=== PATIENT | female | born 1985 | race American Indian/Alaskan Native ===

== ENCOUNTER 2017-02-02 01:31 | Emergency (ER) | payer OTHER ==
[2017-02-02] MEDS ORDERED: guaiFENesin/D-METHORPHAN HB 10 ML UNIT-DOSE CUPS PO ONE (03:08)
--- NOTE | 2017-02-02 03:12 | PDOC ---
History of Present Illness - General History Source: Patient Exam Limitations: No Limitations - History of Present Illness Initial Comments: 02/02/17 03:12 The patient is a 31 year old female with no pertinent past medical history who presents to the ED with 3 weeks of persistent cough. She qualifies the cough as productive and denies any presence of blood. She also reports mild shortness of breath. The patient denies any fever, chills, nausea, vomiting, diarrhea, or chest pain. She denies any recent illness or sick contacts. PCP: Kary Wang <Elisabeth Andrews - Last Filed: 02/02/17 03:12> <Jordon Syed - Last Filed: 02/02/17 04:25> - General Chief Complaint: Respiratory Stated Complaint: COUGH Past History <Elisabeth Andrews - Last Filed: 02/02/17 03:12> - Past Medical History Asthma: No Cancer: No Cardiac Disorders: No Diabetes: No HTN: No Seizures: No Thyroid Disease: No - Immunization History Immunization Up to Date: Yes - Psycho/Social/Smoking Cessation Hx Anxiety: No Suicidal Ideation: No Smoking Status: No Smoking History: Never smoked Number of Cigarettes Smoked Daily: 0 Hx Alcohol Use: No Drug/Substance Use Hx: No Hx Substance Use Treatment: No <Jordon Syed - Last Filed: 02/02/17 04:25> - Past Medical History Allergies/Adverse Reactions: Allergies Allergy/AdvReac Type Severity Reaction Status Date / Time No Known Allergies Allergy Verified 02/02/17 01:46 Home Medications: Ambulatory Orders NK [No Known Home Medication] 02/02/17 Review of Systems - Review of Systems Able to Perform ROS?: Yes Comments:: 02/02/17 03:13 GENERAL/CONSTITUTIONAL: No fever or chills. No weakness. HEAD, EYES, EARS, NOSE AND THROAT: No change in vision. No ear pain or discharge. No sore throat. CARDIOVASCULAR: No chest pain. RESPIRATORY: Present: productive cough, SOB No wheezing, or hemoptysis. GASTROINTESTINAL: No nausea, vomiting, diarrhea or constipation. GENITOURINARY: No dysuria, frequency, or change in urination. MUSCULOSKELETAL: No joint or muscle swelling or pain. No neck or back pain. SKIN: No rash NEUROLOGIC: No headache, vertigo, loss of consciousness, or change in strength/ sensation. ENDOCRINE: No increased thirst. No abnormal weight change. HEMATOLOGIC/LYMPHATIC: No anemia, easy bleeding, or history of blood clots. ALLERGIC/IMMUNOLOGIC: No hives or skin allergy. All Other Systems: Reviewed and Negative <Elisabeth Andrews - Last Filed: 02/02/17 03:12> *Physical Exam - Vital Signs Last Vital Signs Temp Pulse Resp BP Pulse Ox 98.1 F 81 18 123/83 99 02/02/17 01:41 02/02/17 01:41 02/02/17 01:41 02/02/17 01:41 02/02/17 01:41 - Physical Exam Comments: 02/02/17 03:14 GENERAL: Awake, alert, and fully oriented, in no acute distress HEAD: No signs of trauma EYES: PERRLA, EOMI, sclera anicteric, conjunctiva clear ENT: Left palatine tonsilith. Auricles normal inspection, hearing grossly normal , nares patent, Moist mucosa NECK: Normal ROM, supple, no lymphadenopathy, JVD, or masses LUNGS: Expiratory wheeze. Breath sounds equal, clear to auscultation bilaterally. No wheezes, and no crackles HEART: Regular rate and rhythm, normal S1 and S2, no murmurs, rubs or gallops ABDOMEN: Soft, nontender, normoactive bowel sounds. No guarding, no rebound. No masses EXTREMITIES: Normal range of motion, no edema. No clubbing or cyanosis. No cords , erythema, or tenderness NEUROLOGICAL: Cranial nerves II through XII grossly intact. Normal speech, normal gait SKIN: Warm, Dry, normal turgor, no rashes or lesions noted. <Elisabeth Andrews - Last Filed: 02/02/17 03:12> - Vital Signs Last Vital Signs Temp Pulse Resp BP Pulse Ox 98.1 F 81 18 123/83 99 02/02/17 01:41 02/02/17 01:41 02/02/17 01:41 02/02/17 01:41 02/02/17 01:41 <Jordon Syed - Last Filed: 02/02/17 04:25> Medical Decision Making - Medical Decision Making 02/02/17 04:21 This is a 31yo f with ongoing dry cough and no other symptoms; she has no known sick contacts and reports not smoking routinely; she has a normal PE and and CXR shows scarring and chronic changes however, she reports no h/o any occupational or home exposure; [place] She is given antitussives and encouraged to follow up with the PMD within the next 48 hours. <Jordon Syed - Last Filed: 02/02/17 04:25> *DC/Admit/Observation/Transfer - Attestations Scribe Attestion: 02/02/17 03:15 Documentation prepared by Elisabeth Andrews, acting as medical coding specialist for Jordon Syed MD. <Elisabeth Andrews - Last Filed: 02/02/17 03:12> - Discharge Dispostion Admit: No Decision to Admit order Date/Time: 02/02/17 03:08 - Attestations Physician Attestion: 02/02/17 04:18 <Jordon Syed - Last Filed: 02/02/17 04:25> Diagnosis at time of Disposition: Acute bronchitis Qualifiers: Bronchitis organism: other organism Qualified Code(s): J20.8 - Acute bronchitis due to other specified organisms - Discharge Dispostion Disposition: HOME Condition at time of disposition: Guarded - Referrals Referrals: Kary Wang MD [Primary Care Provider] - - Patient Instructions Additional Instructions: At this time, your symptoms are likely related to a viral bronchitis and this can be persistent for up to a few weeks in fact. Please use the medications prescribed and if there is any change otherwise in your symptoms, please return immediately to the ED.
[2017-02-02] MEDS ORDERED: guaiFENesin/D-METHORPHAN HB 10 ML UNIT-DOSE CUPS ONE (03:19)
[2017-02-02 03:35] VITALS: PULSE 80; TEMP 97.5
[2017-02-02] MEDS ORDERED: LIDOCAINE HCL 2% (50ML VIAL) PNB ONE (04:19)
[2017-02-02] MEDS ORDERED: ALBUTEROL SO4 2.5/IPRATROPIUM 0.5 INH SOL 3 ML VIAL.NEB. NEB ONE ×2 (04:19→04:27)
[2017-02-02] MEDS ORDERED: LIDOCAINE HCL 2% (20ML MULTI-DOSE VIAL) NR ONE (04:27)
[2017-02-02 04:45] VITALS: BP 125/88
== END 2017-02-02 04:46 | disposition home or self-care (01) ==
LOC: JER 01:31
PROC: 3E0F7GC Introduction of Other Therapeutic Substance into Respiratory Tract, Via Natural or Artificial Opening (ICD-10-PCS; principal; 2017-02-02)
DX: J20.8 Acute bronchitis due to other specified organisms (principal)
CPT/HCPCS: 71020-TC; 84703; 94640; 99284-25

== ENCOUNTER 2017-03-29 22:48 | Emergency (ER) | payer OTHER ==
[2017-03-29 22:57] VITALS: BP 115/79; PULSE 74; TEMP 97.8; BMI 26.4
[2017-03-30 00:11] LABS: BASOPHIL 0.6 % (0-2.0); EOSINOPHIL 7.3 % (0-4.5); MCH 28.8 pg (25.7-33.7); MCHC 32.7 g/dl (32.0-36.0); MEAN CELL VOLUME 87.9 fl (80-96); MEAN PLT VOLUME 8.7 fl (7.5-11.1); NEUTROPHILS 45.1 % (42.8-82.8); PLATELET COUNT 206 K/MM3 (134-434); RDW 12.8 % (11.6-15.6); WHITE BLOOD COUNT 5.8 K/mm3 (4.0-10.0)
[2017-03-30 00:22] LABS: INR 0.98 (0.82-1.09); PROTHROMBIN TIME (PATIENT) 10.8 SEC (9.98-11.88)
--- NOTE | 2017-03-30 00:30 | PDOC ---
History of Present Illness - General History Source: Patient Exam Limitations: No Limitations - History of Present Illness Initial Comments: 03/30/17 01:03 The patient is a 32-year-old female with no significant past medical history, and presents to the emergency department with left breast tenderness, redness, and pain that started 3 days ago. She reports that she is experiencing heaviness in the left breast along with green and red discharge upon squeezing. She reports a subjective fever, one episode of vomiting, and mild bilateral flank pain 2 days ago. She denies any fever upon interview. She took Advil with no significant relief of pain. She reports she has not breastfed in 5 years. She states she had a yeast infection recently. The patient denies chest pain, shortness of breath, headache and dizziness. The patient denies chills, nausea, vomit, diarrhea and constipation. The patient denies dysuria, frequency, urgency and hematuria. LMP: 2 weeks ago Allergies: NKDA Past Surgical History: None reported Social History: No toxic habits reported PCP: Dr. Carmen Marin <Marilyn Simpson - Last Filed: 03/30/17 01:03> <Marbella Arndt - Last Filed: 03/30/17 02:39> - General Chief Complaint: Pain, Acute Stated Complaint: SALINAS IN BREAST Time Seen by Provider: 03/29/17 23:06 Past History <Marilyn Simpson - Last Filed: 03/30/17 01:03> - Past Medical History Asthma: No Cancer: No Cardiac Disorders: No Diabetes: No HTN: No Seizures: No Thyroid Disease: No - Immunization History Immunization Up to Date: Yes - Psycho/Social/Smoking Cessation Hx Anxiety: No Suicidal Ideation: No Smoking Status: No Smoking History: Never smoked Have you smoked in the past 12 months: No Number of Cigarettes Smoked Daily: 0 Information on smoking cessation initiated: No Hx Alcohol Use: No Drug/Substance Use Hx: No Substance Use Type: None Hx Substance Use Treatment: No <Marbella Arndt - Last Filed: 03/30/17 02:39> - Past Medical History Allergies/Adverse Reactions: Allergies Allergy/AdvReac Type Severity Reaction Status Date / Time No Known Allergies Allergy Verified 03/29/17 22:53 Home Medications: Ambulatory Orders Clindamycin [Cleocin -] 300 mg PO Q6HPO #28 capsule 03/30/17 Fluconazole 150 mg PO ONCE #1 tablet 03/30/17 Review of Systems - Review of Systems Able to Perform ROS?: Yes Comments:: 03/30/17 01:03 CONSTITUTIONAL: Present: (+) fever Absent: chills, diaphoresis, generalized weakness, malaise, loss of appetite HEENT: Absent: rhinorrhea, nasal congestion, throat pain, throat swelling, difficulty swallowing, mouth swelling, ear pain, eye pain, visual changes CARDIOVASCULAR: Absent: chest pain, syncope, palpitations, irregular heart rate, lightheadedness , peripheral edema RESPIRATORY: Absent: cough, shortness of breath, dyspnea with exertion, orthopnea, wheezing, stridor, hemoptysis GASTROINTESTINAL: Present: (+) vomiting Absent: abdominal pain, abdominal distension, nausea, diarrhea, constipation, melena, hematochezia THORACIC: Present: (+) Left breast pain, hardness, redness, and discharge GENITOURINARY: Absent: dysuria, frequency, urgency, hesitancy, hematuria, genital pain MUSCULOSKELETAL: Absent: myalgia, arthralgia, joint swelling SKIN: Absent: rash, itching, pallor HEMATOLOGIC/IMMUNOLOGIC: Absent: easy bleeding, easy bruising, lymphadenopathy, frequent infections ENDOCRINE: Absent: unexplained weight gain, unexplained weight loss, heat intolerance, cold intolerance NEUROLOGIC: Absent: headache, focal weakness or paresthesias, dizziness, unsteady gait, seizure, mental status changes, bladder or bowel incontinence PSYCHIATRIC: Absent: anxiety, depression, suicidal or homicidal ideation, hallucinations. <Marilyn Simpson - Last Filed: 03/30/17 01:03> *Physical Exam - Vital Signs Last Vital Signs Temp Pulse Resp BP Pulse Ox 97.8 F 74 18 115/79 99 03/29/17 22:50 03/29/17 22:50 03/29/17 22:50 03/29/17 22:50 03/29/17 22:50 - Physical Exam Comments: 03/30/17 01:04 GENERAL: Well developed, well nourished. Awake and alert. No acute distress. HEENT: Normocephalic, atraumatic. PERRLA, EOMI. No conjunctival pallor. Sclera are non- icteric. Moist mucous membranes. Oropharynx is clear. NECK: Supple. Full ROM. No JVD. Carotid pulses 2+ and symmetric, without bruits. No thyromegaly. No lymphadenopathy. CARDIOVASCULAR: Regular rate and rhythm. No murmurs, rubs, or gallops. Distal pulses are 2+ and symmetric. PULMONARY: No evidence of respiratory distress. Lungs clear to auscultation bilaterally. No wheezing, rales or rhonchi. THORACIC: (+) Left breast 3 oclock to 6 oclock presents with redness and hard mass. (+) With pressure of nipple she can express slight yellow pus and clear fluid. ABDOMINAL: Soft. Non-tender. Non-distended. No rebound or guarding. No organomegaly. Normoactive bowel sounds. MUSCULOSKELETAL Normal range of motion at all joints. No bony deformities or tenderness. No CVA tenderness. EXTREMITIES: No cyanosis. No clubbing. No edema. No calf tenderness. SKIN: Warm and dry. Normal capillary refill. No rashes. No jaundice. NEUROLOGICAL: Alert, awake, appropriate. Cranial nerves 2-12 intact. No deficits to light touch and temperature in face, upper extremities and lower extremities. No motor deficits in the in face, upper extremities and lower extremities. Normoreflexic in the upper and lower extremities. Normal speech. Toes are down- going bilaterally. Gait is normal without ataxia. PSYCHIATRIC: Cooperative. Good eye contact. Appropriate mood and affect. <Marilyn Simpson - Last Filed: 03/30/17 01:03> - Vital Signs Last Vital Signs Temp Pulse Resp BP Pulse Ox 97.8 F 74 18 115/79 99 03/29/17 22:50 03/29/17 22:50 03/29/17 22:50 03/29/17 22:50 03/29/17 22:50 <Marbella Arndt - Last Filed: 03/30/17 02:39> ED Treatment Course - LABORATORY CBC & Chemistry Diagram: 03/30/17 00:02 03/30/17 00:02 - ADDITIONAL ORDERS Additional order review: Laboratory Results 03/30/17 03/30/17 03/30/17 00:02 00:02 00:02 INR 0.98 Sodium 144 Potassium 3.7 Chloride 106 Carbon Dioxide 28 Anion Gap 10 BUN 12 D Creatinine 0.6 D Creat Clearance w eGFR > 60 Random Glucose 90 D Calcium 8.7 Total Bilirubin 0.3 AST 38 H ALT 57 Alkaline Phosphatase 74 Total Protein 6.9 Albumin 3.3 L Serum , Qual Negative 03/30/17 00:02 RBC 3.79 MCV 87.9 MCHC 32.7 RDW 12.8 D MPV 8.7 Neutrophils % 45.1 D Lymphocytes % 36.2 D Monocytes % 10.8 H Eosinophils % 7.3 H D Basophils % 0.6 <Marilyn Simpson - Last Filed: 03/30/17 01:03> - LABORATORY CBC & Chemistry Diagram: 03/30/17 00:02 03/30/17 00:02 - ADDITIONAL ORDERS Additional order review: Laboratory Results 03/30/17 00:02 Serum , Qual Negative 03/30/17 00:02 RBC 3.79 MCV 87.9 MCHC 32.7 RDW 12.8 D MPV 8.7 Neutrophils % 45.1 D Lymphocytes % 36.2 D Monocytes % 10.8 H Eosinophils % 7.3 H D Basophils % 0.6 <Marbella Arndt - Last Filed: 03/30/17 02:39> Medical Decision Making - Medical Decision Making 03/30/17 01:06 Labs are normal. Pt's breast sono is pending. Pt had a body fluid cuture sent. 03/30/17 02:06 Patient Name: Lilli García THIS IS A PRELIMINARYREPORT FROM IMAGING MAMMOGRAPHY TECH EXAM: Ultrasound left breast IMAGES: 27 INDICATION: Rule out abscess DATE OF SERVICE: 2017-03-30 00:54:20.0 COMPARISON: none FINDINGS: Dilated and thick walled ducts are noted between the 3:00 and 6:00 position. No discrete fluid collection is noted to suggest abscess. IMPRESSION: Dilated and thickwalled ducts may be secondary to infection but there is no abscess. THIS DOCUMENT HAS BEEN ELECTRONICALLY SIGNED Pt will be treated with clindamycin 600mg IV 03/30/17 02:39 Ptunderstands that this may be a cancer. She will require mammography once her abx course is complete. 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 <Marbella Arndt - Last Filed: 03/30/17 02:39> *DC/Admit/Observation/Transfer - Attestations Scribe Attestion: 03/30/17 01:04 Documentation prepared by Marilyn Simpson, acting as medical doctor md/medical director for Marbella Arndt MD. <Marilyn Simpson - Last Filed: 03/30/17 01:03> - Discharge Dispostion Admit: No <Marbella Arndt - Last Filed: 03/30/17 02:39> Diagnosis at time of Disposition: Cellulitis of breast - Discharge Dispostion Disposition: HOME Condition at time of disposition: Improved - Prescriptions Prescriptions: Clindamycin [Cleocin -] 300 mg PO Q6HPO #28 capsule Fluconazole 150 mg PO ONCE #1 tablet - Referrals Referrals: Carmen Grubbs MD [Primary Care Provider] - Latanya Crain MD [Staff Physician] - - Patient Instructions Printed Discharge Instructions: DI for Mastitis, Mammography
[2017-03-30 00:32] LABS: ALBUMIN 3.3 g/dl (3.4-5.0); ALK PHOS 74 U/L (45-117); ANION GAP 10 (8-16); BILIRUBIN,TOTAL 0.3 mg/dL (0.2-1.0); CALCIUM 8.7 mg/dL (8.5-10.1); CO2 28 mmol/L (21-32); COCKROFT - GAULT 148.4355; CREATININE 0.6 mg/dL (0.55-1.02); GLUCOSE,RANDOM 90 mg/dL (74-106); SGOT/AST 38 U/L (15-37); SGPT/ALT 57 U/L (12-78); TOT PROT 6.9 g/dl (6.4-8.2)
[2017-03-30] MEDS ORDERED: CLINDAMYCIN 600MG PREMIX IVPB 50 ML IVPB ONE ×2 (02:07→02:13)
[2017-03-30] MEDS ORDERED: FLUCONAZOLE 50 MG TABLET PO ONE (02:08)
== END 2017-03-30 02:58 | disposition home or self-care (01) ==
LOC: JER 22:48
DX: N61.0 Mastitis without abscess (principal)
CPT/HCPCS: 36415; 76641-TC-LT; 80053; 84703; 85025; 85610; 87070; 87075; 87205; 99282-25

== ENCOUNTER → 2017-11-05 | Day surgery (SDC) | payer OTHER ==
--- NOTE | 2017-11-06 15:58 | PATH ---
Cytology Non-Gynecological Report Patient Name: NANCY CARTER [facility]. Rec. #: [id number] /Age/Gender: 1985 (Age: 32) / F Account: [id number] Location: RADIOLOGY Taken: 11/05/2017 Received: 11/05/2017 Reported: 11/06/2017 Physicians: Jessica Barrow Specimen(s) Received THYROID FNA LEFT LOBE NODULE Clinical History Left thyroid nodule, 2.05 x 2.05 x1.11 cm Final Diagnosis THYROID, LEFT, FINE NEEDLE ASPIRATION: SATISFACTORY FOR EVALUATION. BETHESDA III: ATYPIA OF UNDETERMINED SIGNIFICANCE. ATYPICAL FOLLICULAR CELLS WITH MILD NUCLEAR ENLARGEMENT, FOCAL CLEARING, SUBTLE NUCLEAR GROOVES, CROWDING AND OVERLAP IN A BACKGROUND OF SCANT COLLOID, FEW LYMPHOCYTES, RARE LYMPHOHISTIOCYTIC AGGREGATES, AND RARE MULTINUCLEATED GIANT CELLS. Comment: Presence of lymphocytes raise the possibility of Chronic lymphocytic thyroiditis. Suggest clinical/radiologic and serologic correlation. Electronically Signed Yuliya Slater M.D. Gross Description Received are eight direct smears, four of which are air-dried and Diff-Quik stained, and four of which are alcohol fixed and Pap stained. Also received is 20 ml of bloody formalin from which one cellblock is prepared.
== END | disposition home or self-care (01) ==
LOC: JRADIR 08:56
PROVIDERS: ATTEND Family Medicine
PROC: 0G9G3ZX Drainage of Left Thyroid Gland Lobe, Percutaneous Approach, Diagnostic (ICD-10-PCS; principal; 2017-11-05)
DX: E04.1 Nontoxic single thyroid nodule (principal)
CPT/HCPCS: 76942; 88173; 88305-TC

== ENCOUNTER → 2017-11-17 | Day surgery (SDC) | payer OTHER ==
--- NOTE | 2017-11-19 16:44 | PATH ---
Cytology Non-Gynecological Report Patient Name: NANCY CARTER [facility]. Rec. #: [id number] /Age/Gender: 1985 (Age: 32) / F Account: [id number] Location: RADIOLOGY [facility] Taken: 11/17/2017 Received: 11/17/2017 Reported: 11/19/2017 Physicians: Jessica Montiel Specimen(s) Received LEFT BREAST ASP Clinical History Left breast abscess. History of antibiotic treatment. Final Diagnosis BREAST, LEFT, 3-5:00, FINE NEEDLE ASPIRATION: SATISFACTORY FOR EVALUATION. NEGATIVE FOR MALIGNANT CELLS. ACUTELY INFLAMED CYSTIC BREAST LESION. INFLAMMATORY INFILTRATE COMPRISED OF MACROPHAGES, MANY NEUTROPHILS AND FEW LYMPHOCYTES IN A HEMORRHAGIC BACKGROUND. Electronically Signed Yuliya Slater M.D. Gross Description Approximately 50 cc of clear yellow fluid received fixed in 50% alcohol. Two cytofunnels and one cellblock prepared.
== END | disposition home or self-care (01) ==
LOC: JRADUS-SUR 09:35
PROVIDERS: ATTEND Family Medicine
PROC: 0H9U3ZX Drainage of Left Breast, Percutaneous Approach, Diagnostic (ICD-10-PCS; principal; 2017-11-17)
DX: N60.02 Solitary cyst of left breast (principal)
CPT/HCPCS: 76942-TC; 87070; 87075; 87205; 87899; 88173; 88305-TC

== ENCOUNTER 2018-03-12 00:18 | Emergency (ER) | payer OTHER ==
[2018-03-12 00:33] VITALS: BP 129/71; PULSE 88; TEMP 98.2; BMI 27.1
[2018-03-12] MEDS ORDERED: predniSONE 10 MG TABLET (UD) ONE (00:39)
[2018-03-12] MEDS ORDERED: predniSONE 20 MG TABLET (UD) ONE (00:39)
--- NOTE | 2018-03-12 01:27 | PDOC ---
*Physical Exam - Vital Signs Last Vital Signs Temp Pulse Resp BP Pulse Ox 98.2 F 88 18 129/71 100 03/12/18 00:26 03/12/18 00:26 03/12/18 00:26 03/12/18 00:26 03/12/18 00:26 - Physical Exam Comments: 03/12/18 01:27 The patient was examined by [HANNAH Shirley] under my direct supervision. I personally evaluated the patient. I concur with the above findings and the plan of care. *DC/Admit/Observation/Transfer Diagnosis at time of Disposition: Pain of right breast, Painful lumpy right breast - Discharge Dispostion Disposition: HOME Condition at time of disposition: Stable - Referrals Referrals: Thom Stroud MD [Staff Physician] - Call tomorrow Miguel Angel Stroud [Staff Physician] - Call tomorrow Kary Wang MD [Primary Care Provider] - - Patient Instructions Printed Discharge Instructions: Mastalgia: Benign Breast Pain Additional Instructions: apply ice/ warm compress to the breast take ibuprofen 400 mg every 6 hours as needed follow up with your doctor as soon as possible. - Post Discharge Activity Forms/Work/School Notes: Back to Work
[2018-03-12] MEDS ORDERED: IBUPROFEN 600 MG TABLET (FP) PO ONE ×2 (01:44→02:07)
--- NOTE | 2018-03-12 01:45 | PDOC ---
History of Present Illness - General Chief Complaint: Pain, Acute Stated Complaint: PAIN Time Seen by Provider: 03/12/18 01:24 History Source: Patient - History of Present Illness Initial Comments: 03/12/18 01:44 32 year old female with right breast pain at the nipple level and pain mobile nodule x3 days. denies fever/ chills, no erythema or lymphadenopathy. history of left breast abscess. Past History - Past Medical History Allergies/Adverse Reactions: Allergies Allergy/AdvReac Type Severity Reaction Status Date / Time No Known Allergies Allergy Verified 03/12/18 02:15 Home Medications: Ambulatory Orders NK [No Known Home Medication] 03/12/18 Asthma: No Cancer: No Cardiac Disorders: No Diabetes: No HTN: No Seizures: No Thyroid Disease: No - Immunization History Immunization Up to Date: Yes - Suicide/Smoking/Psychosocial Hx Smoking Status: No Smoking History: Never smoked Have you smoked in the past 12 months: No Number of Cigarettes Smoked Daily: 0 Information on smoking cessation initiated: No Hx Alcohol Use: No Drug/Substance Use Hx: No Substance Use Type: None Hx Substance Use Treatment: No *Physical Exam - Vital Signs Last Vital Signs Temp Pulse Resp BP Pulse Ox 98.2 F 88 18 129/71 100 03/12/18 00:26 03/12/18 00:26 03/12/18 00:26 03/12/18 00:26 03/12/18 00:26 - Physical Exam General Appearance: Yes: Appropriately Dressed Neck: negative: Lymphadenopathy (R), Lymphadenopathy (L) Respiratory/Chest: positive: Other (right breast mobile nodule at nipple level 7 O' clock position. no surroung erythema,edema, tenderness, nipple dimpling notes) Medical Decision Making - Medical Decision Making breast nodule P: patient referred to breast surgery. no cellulitis/ abscess *DC/Admit/Observation/Transfer Diagnosis at time of Disposition: Pain of right breast, Painful lumpy right breast - Discharge Dispostion Disposition: HOME Condition at time of disposition: Stable - Referrals Referrals: Kary Wang MD [Primary Care Provider] - Thom Stroud MD [Staff Physician] - Call tomorrow Miguel Angel Stroud [Staff Physician] - Call tomorrow - Patient Instructions Printed Discharge Instructions: Mastalgia: Benign Breast Pain Additional Instructions: apply ice/ warm compress to the breast take ibuprofen 400 mg every 6 hours as needed follow up with your doctor as soon as possible. - Post Discharge Activity Forms/Work/School Notes: Back to Work
== END 2018-03-12 02:27 | disposition home or self-care (01) ==
LOC: JER 00:18
DX: N64.4 Mastodynia (principal)
CPT/HCPCS: 99282-25

== ENCOUNTER 2018-12-26 02:51 | Emergency (ER) | payer OTHER ==
[2018-12-26 03:35] VITALS: BP 114/76; PULSE 78; TEMP 98.2; BMI 30.2
[2018-12-26] MEDS ORDERED: IBUPROFEN 400 MG TABLET (FP) PO ONE ×2 (04:14→04:25)
[2018-12-26] MEDS ORDERED: ACETAMINOPHEN 500 MG TABLET (FP) PO ONE (04:14)
--- NOTE | 2018-12-26 04:15 | PDOC ---
Attending Attestation - Resident Resident Name: Casper Edge - ED Attending Attestation I have performed the following: I have examined & evaluated the patient, The case was reviewed & discussed with the resident, I agree w/resident's findings & plan - HPI HPI: 12/26/18 23:23 Pt comes with sore throat and she is worried that she has strep throat. - Physicial Exam PE: 12/26/18 23:23 Agree with resident exam - Medical Decision Making 12/26/18 23:24 Pt has a negative strep throat and she will be sent home with dx of viral pharyngitis.
[2018-12-26] MEDS ORDERED: ACETAMINOPHEN 325 MG TABLET (FP) ONE (04:25)
--- NOTE | 2018-12-26 04:29 | PDOC ---
History of Present Illness - General Chief Complaint: Sore Throat Stated Complaint: SORE THROAT Time Seen by Provider: 12/26/18 03:49 History Source: Patient Exam Limitations: No Limitations - History of Present Illness Initial Comments: 12/26/18 04:24 Patient is a 33F with history of thyroid cancer (s/p nodule removal x2, currently being evaluated for third) here today complaining of a sore throat that started one week ago. Patient states that this started with cough, fevers, and chills. She has been getting better for the past few days, with no fever for two days, but is coming into the ED because she cannot speak properly. Able to tolerate PO normally. No drooling. No shortness of breath. No chest pain. Past History - Past Medical History Allergies/Adverse Reactions: Allergies Allergy/AdvReac Type Severity Reaction Status Date / Time No Known Allergies Allergy Verified 12/26/18 03:34 Home Medications: Ambulatory Orders NK [No Known Home Medication] 03/12/18 Asthma: No Cancer: No Cardiac Disorders: No COPD: No Diabetes: No HTN: No Seizures: No Thyroid Disease: No - Immunization History Immunization Up to Date: Yes - Suicide/Smoking/Psychosocial Hx Smoking Status: No Smoking History: Never smoked Have you smoked in the past 12 months: No Number of Cigarettes Smoked Daily: 0 Information on smoking cessation initiated: No Hx Alcohol Use: No Drug/Substance Use Hx: No Substance Use Type: None Hx Substance Use Treatment: No Review of Systems - Review of Systems Comments:: 12/26/18 05:10 GENERAL/CONSTITUTIONAL: No fever or chills. No weakness. HEAD, EYES, EARS, NOSE AND THROAT: No change in vision. No sore throat. CARDIOVASCULAR: No chest pain or shortness of breath RESPIRATORY: +cough, no wheezing, or hemoptysis. GASTROINTESTINAL: No nausea, vomiting, diarrhea or constipation. GENITOURINARY: No dysuria, frequency, or change in urination. MUSCULOSKELETAL: No joint or muscle swelling or pain. No neck or back pain. SKIN: No rash NEUROLOGIC: No headache, vertigo, loss of consciousness, or change in strength/ sensation. ENDOCRINE: No increased thirst. No abnormal weight change HEMATOLOGIC/LYMPHATIC: No anemia, easy bleeding, or history of blood clots. ALLERGIC/IMMUNOLOGIC: No hives or skin allergy. *Physical Exam - Vital Signs Last Vital Signs Temp Pulse Resp BP Pulse Ox 98.2 F 78 20 114/76 100 12/26/18 03:34 12/26/18 03:34 12/26/18 03:34 12/26/18 03:34 12/26/18 03:34 - Physical Exam Comments: 12/26/18 05:11 GENERAL: Awake, alert, and fully oriented, in no acute distress HEAD: No signs of trauma, normocephalic, atraumatic EYES: PERRLA, EOMI, sclera anicteric, conjunctiva clear ENT: Auricles normal inspection, hearing grossly normal, nares patent, oropharynx erythematous w/o exudate, uvula midline NECK: Normal ROM, supple, no lymphadenopathy, JVD, or masses LUNGS: No distress, speaks full sentences, clear to auscultation bilaterally HEART: Regular rate and rhythm, normal S1 and S2, no murmurs, rubs or gallops, peripheral pulses normal and equal bilaterally. ABDOMEN: Soft, nontender, normoactive bowel sounds. No guarding, no rebound. No masses EXTREMITIES: Normal inspection, Normal range of motion, no edema. No clubbing or cyanosis. NEUROLOGICAL: Cranial nerves II through XII grossly intact. Normal speech, normal gait, no focal sensorimotor deficits SKIN: Warm, Dry, normal turgor, no rashes or lesions noted. Moderate Sedation - Procedure Monitoring Vital Signs: Procedure Monitoring Vital Signs Temperature 98.2 F 12/26/18 03:34 Pulse Rate 78 12/26/18 03:34 Respiratory Rate 20 12/26/18 03:34 Blood Pressure 114/76 12/26/18 03:34 O2 Sat by Pulse Oximetry (%) 100 12/26/18 03:34 Medical Decision Making - Medical Decision Making 12/26/18 05:11 Patient is 33F here today with likely laryngitis. No signs of [employer], retropharyngeal abscess, epiglottis or other emergent dx. Rapid strep normal. Treated with tylenol and motrin. Patient given return precautions, instructed to f/u with neck surgeon for possible complication of multiple neck surgeries. *DC/Admit/Observation/Transfer Diagnosis at time of Disposition: Pharyngitis - Discharge Dispostion Disposition: HOME Condition at time of disposition: Good Decision to Admit order: No - Referrals - Patient Instructions Printed Discharge Instructions: DI for Viral Pharyngitis Additional Instructions: Please follow up with your primary care doctor and neck surgeon. Please return if you have any new, worsening or concerning symptoms, especially fever, difficulty swallowing and drooling. - Post Discharge Activity
== END 2018-12-26 05:14 | disposition home or self-care (01) ==
LOC: JER 02:51
DX: J02.9 Acute pharyngitis, unspecified (principal); Z85.850 Personal history of malignant neoplasm of thyroid
CPT/HCPCS: 87070; 87880; 99282-25

== ENCOUNTER 2022-05-04 17:19 | Emergency (ER) | payer OTHER ==
[2022-05-04 17:45] VITALS: BP 102/59; PULSE 87; TEMP 98.1; BMI 27.4
[2022-05-04] MEDS ORDERED: KETOROLAC TROMETHAMINE 30 MG/1 ML VIAL IM ONE (19:13)
== END 2022-05-04 20:11 | disposition home or self-care (01) ==
LOC: JER 17:19 → JERFT 17:19
PROC: 3E0233Z Introduction of Anti-inflammatory into Muscle, Percutaneous Approach (ICD-10-PCS; principal; 2022-05-04)
DX: M79.602 Pain in left arm (principal)
CPT/HCPCS: 73110-TC-LT-FY; 99284-25